=== PATIENT | female | born 1960 | race Caucasian/White ===

== ENCOUNTER 2018-05-30 15:44 | Observation (INO) ==
--- NOTE | 2018-05-30 16:21 | ED ---
HPI General Chief complaint: Respiratory Symptoms Stated complaint: trouble breathing, swelling Time Seen by Provider: 05/30/18 16:03 Source: patient and RN notes reviewed Mode of arrival: ambulatory Limitations: no limitations History of Present Illness HPI narrative: 58-year-old female presents to the emergency department for several complaints. The patient reports shortness of breath, chest heaviness that started 5 days ago. Patient denies any exacerbating or alleviating factors of her chest pain. No radiation. Patient does report history of DC when she was 43 years old. Patient has not taken aspirin. 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 She denies any recent stress testing or cardiac catheterization. She reports chronic leg edema. She reports history of hypertension, diabetes, anxiety, DC, asthma. She also reports history of colitis. She states she has been having worsening abdominal pain. She reports history of chronic pain, but states that has been worse over the past few weeks. She reports associated diarrhea and nausea, but no vomiting. 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 She denies any recent imaging. She denies any recent surgery or travel. No hemoptysis. Denies any history of DVT or PE. She is not on anticoagulants. Onset (ago): day(s) Location: chest Radiation: non-radiation Severity: moderate Severity scale (1-10): 8 Quality: other (heavy) Pain Consistency: constant Relieving factors: none Exacerbating factors: none Associated symptoms: Reports nausea/vomiting, shortness of breath and other ( abdominal pain/swelling); Denies confusion, fever/chills, headaches, syncope and weakness Related Data Home Medications Medication Instructions Recorded Confirmed hydroxyzine HCl 25 mg PO QAM 05/30/18 05/30/18 hydroxyzine HCl 50 mg PO QPM 05/30/18 05/30/18 metformin 1,000 mg PO QAM 05/30/18 05/30/18 metformin 500 mg PO QPM 05/30/18 05/30/18 metoprolol succinate [Toprol XL] 100 mg PO BID 05/30/18 05/30/18 Allergies Allergy/AdvReac Type Severity Reaction Status Date / Time doxycycline Allergy Intermediate Hives Verified 05/30/18 17:57 minocycline Allergy Intermediate Hives Verified 05/30/18 17:57 morphine Allergy Intermediate Hives Verified 05/30/18 17:57 tigecycline Allergy Intermediate Hives Verified 05/30/18 17:57 Review of Systems ROS: all other systems reviewed are negative [facility] Medical History Medical History Asthma (Acute) COPD (chronic obstructive pulmonary disease) (Acute) Colitis (Acute) Diabetes (Acute) Heart attack (Acute) Hypertension (Acute) Left knee dislocation (Acute) Surgical History Surgical History History of cholecystectomy (Acute) History of left knee surgery (Acute) Hx of tonsillectomy (Acute) Social History Social History Substance History: No History of Abuse Second Hand Smoke Exposure: Yes Smoking Status: Current every day smoker Tobacco Type: Cigarettes How Often Do You Have a Drink Containing Alcohol: Never Recent Travel in [facility] within the Last 8 Weeks: No Recent Out of Country Travel within the Last 8 Weeks: No Exam Narrative Exam Narrative: GENERAL: Well-nourished, well-developed female patient, afebrile SKIN: Focused skin assessment warm/dry. HEAD: Normocephalic. Atraumatic EYES: No scleral icterus. No injection or drainage. NECK: Supple, trachea midline. No JVD or lymphadenopathy. CARDIOVASCULAR: Regular rate and rhythm without murmurs, gallops, or rubs. Bilateral radial and pedal pulses are 2+ RESPIRATORY: Breath sounds equal bilaterally. No accessory muscle use. Lung sounds are clear to auscultation GASTROINTESTINAL: Abdomen soft and nondistended. She reports right sided tenderness to palpation MUSCULOSKELETAL: No cyanosis. Bilateral 2+ lower BACK: Nontender without obvious deformity. Bilateral CVA tenderness. Course Initial Documented Vital Signs Temperature 97.9 F 05/30/18 15:52 Pulse Rate 88 05/30/18 15:52 Respiratory Rate 16 05/30/18 15:52 Blood Pressure 149/72 H 05/30/18 15:52 Pulse Oximetry 93 L 05/30/18 15:52 Last Documented Vital Signs Temperature 98.2 F 05/30/18 21:31 Pulse Rate 82 05/30/18 21:31 Respiratory Rate 17 05/30/18 21:31 Blood Pressure 141/65 H 05/30/18 21:31 Pulse Oximetry 94 L 05/30/18 21:31 Medical Decision Making TANIA Attestation TANIA supervised visit: Yes Attestation: I, Dr. Frederick, have reviewed the advance practice practitioner's documentation and am in agreement, met with the patient face to face, made the diagnosis, and the medical decision making was done by me. *My assessment and Findings: Patient seen and evaluated with PA, please see PA note for further details. Patient coming in with several complaints, abdominal discomfort, chest pains, and she is tender to palpation of the upper abdomen. She has been having diarrhea as well. Abdominal pain workup was initiated. EKG and chest pain workup evaluated as well. Disposition based on workup. MDM Narrative Medical decision making narrative: 58-year-old female presents to the emergency department for several complaints. She complains of chest heaviness, shortness of breath, abdominal pain. EKG shows sinus rhythm, heart rate 81, no acute ST changes. IV access obtained. CBC, CMP, lipase, magnesium, CK, troponin, BNP, PTT, PT/INR, d-dimer, chest x-ray are ordered and pending. Patient is given aspirin 162 mg p.o. CBC shows no acute abnormality. CMP shows elevated hyperglycemia 277, no acute abnormality. Lipase is 78. Magnesium is 1.8. CK is 134. Troponin is less than 0.02. BNP is 12. PTT is 18.7. PT/INR is 10.0/1.0. D-dimer is 2.43. Chest x-ray shows no acute cardiopulmonary disease. CT abdomen/pelvis and CT pulmonary angiogram are ordered and pending. CT abdomen/pelvis shows No acute CT abnormality in the abdomen or pelvis; Mild colonic diverticulosis without evidence for diverticulitis; No definitive evidence for CT evidence for colitis; Hepatomegaly with decreased hepatic attenuation consistent with medical liver disease versus hepatic steatosis; Minimal groundglass opacities at the right lung base, likely atelectasis; Nonspecific mar mesentery and subcentimeter mesenteric nodes in the left upper quadrant. Differential considerations include mesenteric panniculitis amongst other etiologies. Chest CTA is negative for pulmonary embolism. Patient is instructed to follow up with GI. She will be admitted to the [facility] for further evaluation of chest pain. Medical Screen Exam Complete: Yes Emergency Medical Condition: Yes Lab Data Result diagrams: 05/30/18 16:25 05/30/18 16:25 Lab Results 05/30/18 05/30/18 05/30/18 Range/Units 16:25 16:25 16:25 WBC 6.3 (4.0-11.0) th/mm3 RBC 4.48 (4.00-5.30) mil/mm3 Hgb 14.1 (11.6-15.3) gm/dL Hct 40.7 (35.0-46.0) % MCV 90.9 (80.0-100.0) fL MCH 31.4 (27.0-34.0) pg MCHC 34.5 (32.0-36.0) % RDW 13.1 (11.6-17.2) % Plt Count 186 (150-450) th/mm3 MPV 8.0 (7.0-11.0) fL Neut % (Auto) 57.7 (16.0-70.0) % Lymph % (Auto) 29.2 (9.0-44.0) % Cecil % (Auto) 6.1 (0.0-8.0) % Eos % (Auto) 6.2 H (0.0-4.0) % Baso % (Auto) 0.8 (0.0-2.0) % Neut # (Auto) 3.6 (1.8-7.7) th/mm3 Lymph # (Auto) 1.8 (1.0-4.8) th/mm3 Cecil # (Auto) 0.4 (0.0-0.9) th/mm3 Eos # (Auto) 0.4 (0.0-0.4) th/mm3 Baso # (Auto) 0.1 (0.0-0.2) th/mm3 WBC Differential . Differential Comment Auto diff final PT 10.0 (9.8-11.6) sec INR 1.0 Ratio APTT 18.7 L (23.4-31.7) sec D-Dimer Quant (PE/DVT) 2.43 H (0.00-0.50) mg/L FEU Sodium 136 (136-145) meq/L Potassium 4.9 (3.5-5.1) meq/L Chloride 101 (98-107) meq/L Carbon Dioxide 26.3 (21.0-32.0) meq/L Anion Gap 9 (5-15) meq/L BUN 7 (7-18) mg/dL Creatinine 0.79 (0.50-1.00) mg/dL Estimated GFR 74 L (>89) mL/min POC Glucose (68-110) mg/dl Random Glucose 277 H (74-106) mg/dL Calcium 8.8 (8.5-10.1) mg/dL Magnesium 1.8 (1.5-2.5) mg/dL Total Bilirubin 0.6 (0.2-1.0) mg/dL AST 81 H (15-37) U/L ALT 43 (10-53) U/L Alkaline Phosphatase 167 H (45-117) U/L Total Creatine Kinase 134 (26-192) U/L CK-MB (CK-2) Less than 1.0 (0.5-3.6) ng/mL Troponin I Less than 0.02 L (0.02-0.05) ng/mL B-Natriuretic Peptide (0-100) pg/mL Total Protein 7.3 (6.4-8.2) g/dL Albumin 2.7 L (3.4-5.0) g/dL Lipase 78 (73-393) U/L 05/30/18 05/30/18 05/30/18 Range/Units 16:25 20:15 20:27 WBC (4.0-11.0) th/mm3 RBC (4.00-5.30) mil/mm3 Hgb (11.6-15.3) gm/dL Hct (35.0-46.0) % MCV (80.0-100.0) fL MCH (27.0-34.0) pg MCHC (32.0-36.0) % RDW (11.6-17.2) % Plt Count (150-450) th/mm3 MPV (7.0-11.0) fL Neut % (Auto) (16.0-70.0) % Lymph % (Auto) (9.0-44.0) % Cecil % (Auto) (0.0-8.0) % Eos % (Auto) (0.0-4.0) % Baso % (Auto) (0.0-2.0) % Neut # (Auto) (1.8-7.7) th/mm3 Lymph # (Auto) (1.0-4.8) th/mm3 Cecil # (Auto) (0.0-0.9) th/mm3 Eos # (Auto) (0.0-0.4) th/mm3 Baso # (Auto) (0.0-0.2) th/mm3 WBC Differential Differential Comment PT (9.8-11.6) sec INR Ratio APTT (23.4-31.7) sec D-Dimer Quant (PE/DVT) (0.00-0.50) mg/L FEU Sodium (136-145) meq/L Potassium (3.5-5.1) meq/L Chloride (98-107) meq/L Carbon Dioxide (21.0-32.0) meq/L Anion Gap (5-15) meq/L BUN (7-18) mg/dL Creatinine (0.50-1.00) mg/dL Estimated GFR (>89) mL/min POC Glucose 149 H (68-110) mg/dl Random Glucose (74-106) mg/dL Calcium (8.5-10.1) mg/dL Magnesium (1.5-2.5) mg/dL Total Bilirubin (0.2-1.0) mg/dL AST (15-37) U/L ALT (10-53) U/L Alkaline Phosphatase (45-117) U/L Total Creatine Kinase 32 (26-192) U/L CK-MB (CK-2) (0.5-3.6) ng/mL Troponin I Less than 0.02 L (0.02-0.05) ng/mL B-Natriuretic Peptide 12 (0-100) pg/mL Total Protein (6.4-8.2) g/dL Albumin (3.4-5.0) g/dL Lipase (73-393) U/L Imaging Data Radiologist's impression: Chest X-Ray 05/30/18 16:14 CONCLUSION: No acute cardiopulmonary disease. Abdomen/Pelvis CT 05/30/18 17:43 CONCLUSION: 1. No acute CT abnormality in the abdomen or pelvis. 2. Mild colonic diverticulosis without evidence for diverticulitis. 3. No definitive evidence for CT evidence for colitis. 4. Hepatomegaly with decreased hepatic attenuation consistent with medical liver disease versus hepatic steatosis. 5. Minimal groundglass opacities at the right lung base, likely atelectasis. 6. Nonspecific mar mesentery and subcentimeter mesenteric nodes in the left upper quadrant. Differential considerations include mesenteric panniculitis amongst other etiologies. Chest CTA 05/30/18 17:43 CONCLUSION: 1. Motion limited examination with poor visualization of the subsegmental branches of the lower lobes. 2. Otherwise, no CT evidence for pulmonary artery embolism. 3. No significant pleural or parenchymal abnormalities. Discharge Plan Discharge Disposition Patient Disposition: 30 Still Patient Discharge Details Diagnosis: Chest pain Physicians Team ED Provider: Jase Frederick ED Midlevel Provider: Kya Reich Primary Care Provider: Primary Care Mikayla Brock Attending Provider: Talisha Dorado Discharge Interventions Interventions: ED Discharge Assessment Last Done: 05/30/18 21:31 Vital Signs Last Done: 05/30/18 15:56 Status ED Status: Left Department Discharge Information Discharge Date/Time: 05/30/18 21:32
[2018-05-30 17:15] LABS: Baso # (Auto) 0.1 th/mm3 (0.0-0.2); Baso % (Auto) 0.8 % (0.0-2.0); Eos # (Auto) 0.4 th/mm3 (0.0-0.4); Eos % (Auto) 6.2 % (0.0-4.0); Hematocrit 40.7 % (35.0-46.0); Hemoglobin 14.1 gm/dL (11.6-15.3); Lymph # (Auto) 1.8 th/mm3 (1.0-4.8); Lymph % (Auto) 29.2 % (9.0-44.0); Mean Corpuscular HGB Conc 34.5 % (32.0-36.0); Mean Corpuscular Hemoglobin 31.4 pg (27.0-34.0); Mean Corpuscular Volume 90.9 fL (80.0-100.0); Mono # (Auto) 0.4 th/mm3 (0.0-0.9); Mono % (Auto) 6.1 % (0.0-8.0); Neut # (Auto) 3.6 th/mm3 (1.8-7.7); Neut % (Auto) 57.7 % (16.0-70.0); Platelet Count 186 th/mm3 (150-450); Red Blood Count 4.48 mil/mm3 (4.00-5.30); Red Cell Distribution Width 13.1 % (11.6-17.2); White Blood Count 6.3 th/mm3 (4.0-11.0)
--- NOTE | 2018-05-30 17:34 | XR ---
EXAM DATE: 05/30/2018 5:26 PM EST AGE/SEX: 58 years / Female INDICATIONS: Chest pain and shortness of breath. CLINICAL DATA: This is the patient's initial encounter. Patient reports that signs and symptoms have been present for 3 days and indicates a pain score of 8/10. MEDICAL/SURGICAL HISTORY: Chronic obstructive pulmonary disease. Asthma. Myocardial infarctio n. None. COMPARISON: None. FINDINGS: A single AP view of the chest demonstrates the lungs to be symmetrically aerated without evidence of mass, infiltrate or effusion. The cardiomediastinal contours are unremarkable. Osseous structures a re intact. CONCLUSION: No acute cardiopulmonary disease. Electronically signed by: Khurram Verduzco MD 05/30/2018 5:33 PM EST
[2018-05-30 17:35] LABS: Activated Partial Thrombo Time 18.7 sec (23.4-31.7)
[2018-05-30 17:36] LABS: D-Dimer 2.43 mg/L FEU (0.00-0.50)
[2018-05-30] MEDS ORDERED: Sodium Chlor 0.9% Inj 500 ML IV.SIG ONE (17:44)
[2018-05-30 17:45] LABS: Alanine Aminotransferase 43 U/L (10-53); Albumin 2.7 g/dL (3.4-5.0); Alkaline Phosphatase 167 U/L (45-117); Anion Gap 9 meq/L (5-15); Aspartate Aminotransferase 81 U/L (15-37); Blood Urea Nitrogen 7 mg/dL (7-18); Calcium 8.8 mg/dL (8.5-10.1); Carbon Dioxide 26.3 meq/L (21.0-32.0); Chloride 101 meq/L (98-107); Creatine Kinase 134 U/L (26-192); Glomerular Filtration Rate 74 mL/min (>89); Glucose,Random 277 mg/dL (74-106); Lipase 78 U/L (73-393); Magnesium 1.8 mg/dL (1.5-2.5); Potassium 4.9 meq/L (3.5-5.1); Sodium 136 meq/L (136-145); Total Protein 7.3 g/dL (6.4-8.2)
--- NOTE | 2018-05-30 19:06 | CT ---
EXAM DATE: 05/30/2018 7:01 PM EST AGE/SEX: 58 years / Female INDICATIONS: Dyspnea; rule out pulmonary embolus. CLINICAL DATA: This is the patient's initial encounter. Patient reports that signs and symptoms have been present for 1 day and indicates a pain score of 6/10. MEDICAL/SURGICAL HISTORY: Asthma. Chronic obstructive pulmonary disease. Diabetes. Colitis Chol ecystectomy. knee surgery RADIATION DOSE: 18.27 CTDI (mGy) COMPARISON: No prior exams available for comparison. TECHNIQUE: Volumetric scanning was performed using a multi-row detector CT scanner during bolus infu arya of 74 ml Omnipaque 350 (iohexol) nonionic water-soluble contrast as a cumulative dose for multi ple exams. The data was post processed with a variety of visualization algorithms including full volu me maximum intensity projection and sliding thin slab reformation. Using automated exposure control and adjustment of the mA and/or kV according to patient size, radiation dose was kept as low as reaso nably achievable to obtain optimal diagnostic quality images. DICOM format image data is available e lectronically for review and comparison. FINDINGS: Pulmonary Arteries: The pulmonary arteries are visualized through the proximal segmental level. More distal subsegmental branches particularly in the lower lobes are not well demonstrated. This is part ially due to motion artifact. No focal filling defect in the visualized branches. Lung: No focal parenchymal abnormalities. Pleura: No effusion, significant pleural thickening or pneumothorax. Mediastinum: Heart is unremarkable without pericardial effusion.No evidence of mediastinal or hilar adenopathy. Osseous Structures: No abnormal focal lytic or blastic bony lesions. Other: Visulaized upper abdomen is unremarkable. CONCLUSION: 1. Motion limited examination with poor visualization of the subsegmental branches of the lower lobe s. 2. Otherwise, no CT evidence for pulmonary artery embolism. 3. No significant pleural or parenchymal abnormalities. Electronically signed by: Maco Kelley MD 05/30/2018 7:05 PM EST
--- NOTE | 2018-05-30 19:20 | CT ---
EXAM DATE: 05/30/2018 7:11 PM EST AGE/SEX: 58 years / Female INDICATIONS: Abdominal pain; history of colitis. CLINICAL DATA: This is the patient's initial encounter. Patient reports that signs and symptoms have been present for 1 day and indicates a pain score of 6/10. MEDICAL/SURGICAL HISTORY: Diabetes. Asthma. Chronic obstructive pulmonary disease. Colitis Cholecystectomy. knee surgery ORAL CONTRAST: No oral contrast ingested. RADIATION DOSE: 13.99 CTDI (mGy) COMPARISON: No prior exams available for comparison. TECHNIQUE: Multiple contiguous axial images were obtained through the abdomen and pelvis following b olus infusion of 74 ml Omnipaque 350 (iohexol) nonionic water-soluble contrast as a cumulative dose for multiple exams. No oral contrast ingested. Using automated exposure control and adjustment of t he mA and/or kV according to patient size, radiation dose was kept as low as reasonably achievable to obtain optimal diagnostic quality images. DICOM format image data is available electronically for r eview and comparison. FINDINGS: LOWER LUNGS: Minimal groundglass opacities at the right lung base. LIVER: Diffusely decreased hepatic density with hepatomegaly. No volume loss or intrahepatic ductal dilatation. SPLEEN: Homogeneous density without enlargement. PANCREAS: Unremarkable without mass or calcification. KIDNEYS: Kidneys demonstrate symmetrical enhancement and are symmetrical in size without evidence fo r radiopaque renal calculi or hydronephrosis. ADRENAL GLANDS: Unremarkable. AORTA: Kathie-aneurysmal. BOWEL/MESENTERY: Mild sigmoid diverticulosis without significant inflammatory change to suggest dive rticulitis. Bowel loops are otherwise normal in caliber without significant colonic wall thickening o r inflammatory change. Mar mesentery with small mesenteric nodes in the left upper quadrant. No jelani e fluid or drainable fluid collections. No free air. ABDOMINAL WALL: Intact. RETROPERITONEUM: No evidence of adenopathy in the retrocrural, para-aortic, or deep pelvic regions. BLADDER: Contours are smooth. REPRODUCTIVE: No abnormal masses or calcifications seen. BONY STRUCTURES: Mild degenerative changes most prominently at L5-S1 and T12-L1. CONCLUSION: 1. No acute CT abnormality in the abdomen or pelvis. 2. Mild colonic diverticulosis without evidence for diverticulitis. 3. No definitive evidence for CT evidence for colitis. 4. Hepatomegaly with decreased hepatic attenuation consistent with medical liver disease versus hepa tic steatosis. 5. Minimal groundglass opacities at the right lung base, likely atelectasis. 6. Nonspecific mar mesentery and subcentimeter mesenteric nodes in the left upper quadrant. Differ ential considerations include mesenteric panniculitis amongst other etiologies. Electronically signed by: Maco Kelley MD 05/30/2018 7:18 PM EST
[2018-05-30] MEDS ORDERED: Metoprolol Tartrate 100 MG Tablet PO ONE (20:12)
[2018-05-30] MEDS ORDERED: Acetaminophen 500 MG Tablet PO PRN (20:16)
[2018-05-30 21:07] LABS: Creatine Kinase 32 U/L (26-192)
[2018-05-31 01:10] LABS: Creatine Kinase 38 U/L (26-192)
[2018-05-31 08:55] VITALS: RESP 14; TEMP 98.7; O2SAT 94
--- NOTE | 2018-05-31 10:45 | P.PNCA ---
Subjective Interval history: 58-year-old woman presented by physician branch controller and then seen and examined personally. After full discussion and decision making made by myself. This lady has an extensive medical history with a reported heart attack at age 43 in [place] although there is no documentation to support this. She has not been seen by paradi tender or evaluated since that time. She also has a history of severe hypertension, diabetes, bipolar disorder with anxiety and depression, asthma/COPD, and colitis. She is uninsured and has not been able to follow up with any specialist in this area simply receives her care through this area health care. About 5 days ago she developed mid chest discomfort which has been constant although it is increased with deep breathing. She relates this is an 8 out of 10 even has a she is examined although she seems to be fairly comfortable. She describes as a heaviness with no radiation and no precipitating or relieving factors. The focus of much of her current complaint is abdominal pain associated with nausea and diarrhea. She has been told in the past that she has spastic colon. There were no concerns at the present time of the abdominal pain and shortness of breath. She has a smoking history since the age of 14 but stopped about 2 years ago and is aware that she has COPD. She has already been evaluated with an abdominal and pelvic CT scan which shows some possible hepatic stasis and panniculitis but no other acute disease she has also had a CTA of the chest which is negative other than her underlying lung disease. Medications and Allergies Active Medications: Active Medications Acetaminophen (Tylenol) 500 mg PO Q4H PRN PRN Reason: HEADACHE Nitroglycerin (Nitrostat Sl) 0.4 mg SL Q5M PRN PRN Reason: CHEST PAIN Sodium Chloride (Ns Flush) 2 ml IV.FLUSH UNSCH PRN PRN Reason: FLUSH AFTER USING IV ACCESS Last Admin: 05/30/18 17:59 Dose: 2 ml Sodium Chloride (Ns Flush) 2 ml IV.FLUSH BID LELA Last Admin: 05/31/18 08:59 Dose: 2 ml Sodium Chloride (Ns Flush) 2 ml IV.FLUSH PRN PRN PRN Reason: FLUSH AFTER USING IV ACCESS Allergies Allergy/AdvReac Type Severity Reaction Status Date / Time doxycycline Allergy Intermediate Hives Verified 05/30/18 17:57 minocycline Allergy Intermediate Hives Verified 05/30/18 17:57 morphine Allergy Intermediate Hives Verified 11/23/18 17:57 tigecycline Allergy Intermediate Hives Verified 05/30/18 17:57 Home Medications Medication Instructions Recorded Confirmed Type hydroxyzine HCl 25 mg PO QAM 05/30/18 05/30/18 History hydroxyzine HCl 50 mg PO QPM 05/30/18 05/30/18 History metformin 1,000 mg PO QAM 05/30/18 05/30/18 History metformin 500 mg PO QPM 05/30/18 05/30/18 History metoprolol succinate [Toprol XL] 100 mg PO BID 05/30/18 05/30/18 History Physical Exam Vital signs: Vital Signs 05/30/18 15:52 05/30/18 15:56 05/30/18 16:28 Temperature 97.9 F 98.2 F Pulse Rate 88 81 82 Respiratory Rate 16 20 Blood Pressure 149/72 H 161/66 H Pulse Oximetry 93 L 96 96 05/30/18 16:29 05/30/18 16:30 05/30/18 17:20 Temperature Pulse Rate 83 Respiratory Rate 17 18 Blood Pressure 135/65 Pulse Oximetry 96 96 05/30/18 18:01 05/30/18 19:20 05/30/18 20:35 Temperature 97.8 F Pulse Rate 88 74 83 Respiratory Rate 20 19 18 Blood Pressure 161/71 H 160/96 H 150/70 H Pulse Oximetry 97 96 96 05/30/18 21:31 05/31/18 00:02 05/31/18 04:54 Temperature 98.2 F 98.0 F 98.0 F Pulse Rate 82 83 80 Respiratory Rate 17 16 16 Blood Pressure 141/65 H 108/59 L 136/71 Pulse Oximetry 94 L 93 L 92 L 05/31/18 08:53 Temperature 98.7 F Pulse Rate 77 Respiratory Rate 14 Blood Pressure 135/63 Pulse Oximetry 94 L Intake & Output 05/30/18 05/31/18 05/31/18 18:59 06:59 18:59 Intake Total 500 / 500 Balance 500 / 500 Weight 92.533 kg 92.533 kg Intake: IV 500 / 500 NS Inj 500 ML @ Wide Open IV. 500 / 500 SIG BOLUS ONE Rx#:[id number] Other: Date of Last Bowel Movement 05/30/18 Weight On Admission 92.53 kg Narrative: An obese woman resting comfortably flat in bed Eyes PERRLA EOMI sclera clear Neck supple no JVD masses nodes or bruits Cardiovascular PMI is not displaced there is a regular sinus rhythm with no gallop rub or murmur Chest reveals diminished breath sounds but no rales wheezes or rhonchi. The lower chest in the sternal and costochondral areas are exquisitely painful to palpation and represent the probable cause of her current chest pain. The abdomen is obese again exquisitely tender particularly over the left lower quadrants however there is no guarding or rebound and no masses can be palpated Extremities trace of pitting edema bilaterally Results 05/30/18 16:25 05/30/18 16:25 Cardiac Enzymes 05/30/18 05/30/18 05/30/18 Range/Units 16:25 16:25 20:15 AST 81 H (15-37) U/L CK-MB (CK-2) Less than 1.0 (0.5-3.6) ng/mL Troponin I Less than 0.02 L Less than 0.02 L (0.02-0.05) ng/mL B-Natriuretic Peptide 12 (0-100) pg/mL 05/30/18 Range/Units 23:59 AST (15-37) U/L CK-MB (CK-2) (0.5-3.6) ng/mL Troponin I Less than 0.02 L (0.02-0.05) ng/mL B-Natriuretic Peptide (0-100) pg/mL Coagulation 05/30/18 05/30/18 Range/Units 16:25 16:25 PT 10.0 (9.8-11.6) sec APTT 18.7 L (23.4-31.7) sec B-Natriuretic Peptide 12 (0-100) pg/mL CBC 05/30/18 Range/Units 16:25 WBC 6.3 (4.0-11.0) th/mm3 RBC 4.48 (4.00-5.30) mil/mm3 Hgb 14.1 (11.6-15.3) gm/dL Hct 40.7 (35.0-46.0) % Plt Count 186 (150-450) th/mm3 Neut # (Auto) 3.6 (1.8-7.7) th/mm3 Lymph # (Auto) 1.8 (1.0-4.8) th/mm3 [place] # (Auto) 0.4 (0.0-0.9) th/mm3 Eos # (Auto) 0.4 (0.0-0.4) th/mm3 Baso # (Auto) 0.1 (0.0-0.2) th/mm3 Comprehensive Metabolic Panel 05/30/18 Range/Units 16:25 Sodium 136 (136-145) meq/L Potassium 4.9 (3.5-5.1) meq/L Chloride 101 (98-107) meq/L Carbon Dioxide 26.3 (21.0-32.0) meq/L BUN 7 (7-18) mg/dL Creatinine 0.79 (0.50-1.00) mg/dL Calcium 8.8 (8.5-10.1) mg/dL AST 81 H (15-37) U/L ALT 43 (10-53) U/L Alkaline Phosphatase 167 H (45-117) U/L Total Protein 7.3 (6.4-8.2) g/dL Albumin 2.7 L (3.4-5.0) g/dL Intake and Output 05/30/18 05/31/18 05/31/18 22:59 06:59 14:59 Intake Total 500 / 500 Balance 500 / 500 Intake: IV 500 / 500 NS Inj 500 ML @ Wide Open IV. 500 / 500 SIG BOLUS ONE Rx#:[id number] Other: Date of Last Bowel Movement 05/30/18 Weight 92.533 kg Weight On Admission 92.53 kg - Imaging and Cardiology Imaging: Impressions Chest X-Ray 05/30/18 16:14 CONCLUSION: No acute cardiopulmonary disease. Abdomen/Pelvis CT 05/30/18 17:43 CONCLUSION: 1. No acute CT abnormality in the abdomen or pelvis. 2. Mild colonic diverticulosis without evidence for diverticulitis. 3. No definitive evidence for CT evidence for colitis. 4. Hepatomegaly with decreased hepatic attenuation consistent with medical liver disease versus hepatic steatosis. 5. Minimal groundglass opacities at the right lung base, likely atelectasis. 6. Nonspecific mar mesentery and subcentimeter mesenteric nodes in the left upper quadrant. Differential considerations include mesenteric panniculitis amongst other etiologies. Chest CTA 05/30/18 17:43 CONCLUSION: 1. Motion limited examination with poor visualization of the subsegmental branches of the lower lobes. 2. Otherwise, no CT evidence for pulmonary artery embolism. 3. No significant pleural or parenchymal abnormalities. Assessment and Plan - Plan Patient was given reassurance that her chest CT scan and abdominal CT scan showed no acute emergent process. The possible panniculitis in her abdomen is of some concern but needs outpatient follow-up with a jewelry enameler. Her shortness of breath is almost certainly related to her underlying pulmonary disease. Her chest pain is musculoskeletal in origin and consistent with costochondritis. However in view of her history and the fact that she has not been followed for some time a nuclear stress test will be obtained prior to discharge.
--- NOTE | 2018-05-31 11:08 | ECG ---
Date Performed: 05/31/2018 Time Performed: 01:02:09 PTAGE: 58 years EKG: Sinus rhythm NORMAL ECG No significant change PREVIOUS TRACING : 05/30/2018 23.59 DOCTOR: Aubrey Remy Interpretating Date/Time 05/31/2018 11:08:47
--- NOTE | 2018-05-31 11:11 | ECG ---
Date Performed: 05/30/2018 Time Performed: 23:59:50 PTAGE: 58 years EKG: Sinus rhythm WITH MARKED SINUS ARRHYTHMIA Nonspecific ST-T changes with anterior wall ABNORMAL ECG Clinical corre lation recommended PREVIOUS TRACING : 05/30/2018 20.43 DOCTOR: Aubrey Remy Interpretating Date/Time 05/31/2018 11:09:54
--- NOTE | 2018-05-31 11:12 | ECG ---
Date Performed: 05/30/2018 Time Performed: 20:43:05 PTAGE: 58 years EKG: Sinus rhythm BORDERLINE LEFT AXIS DEVIATION NONSPECIFIC ST & T-WAVE ABNORMALITY BORDERLINE ECG No significant tamar nge PREVIOUS TRACING : 05/30/2018 16.14 DOCTOR: Aubrey Remy Interpretating Date/Time 05/31/2018 11:10:58
--- NOTE | 2018-05-31 11:14 | ECG ---
Date Performed: 05/30/2018 Time Performed: 16:14:34 PTAGE: 58 years EKG: Sinus rhythm BORDERLINE LEFT AXIS DEVIATION NONSPECIFIC T-WAVE ABNORMALITY BORDERLINE ECG NO PREVIOUS TRACING DOCTOR: Aubrey Remy Interpretating Date/Time 05/31/2018 11:12:30
[2018-05-31] MEDS ORDERED: Dextrose 50% in Water 50 ML Vial IV.PUSH PRN (11:28)
[2018-05-31] MEDS ORDERED: Insulin NovoLIN Regular Correctional Sugar Inj SQ SCH (12:00)
[2018-05-31] MEDS ORDERED: Metoprolol Tartrate 50 MG Tablet PO ONE (12:03)
[2018-05-31 12:23] VITALS: BP 128/64; PULSE 80
--- NOTE | 2018-05-31 12:32 | P.HPCA ---
History of Present Illness Primary Care Physician: No Primary Care Physician Chief Complaint: Chest pain History of Present Illness: This is a 58-year-old female with history of hypertension, diabetes, asthma, anxiety, and states she was told that she had an WV at age 43, and colitis that presents to ED with complaint of 6 days of constant chest discomfort that primarily is on the left side. States it feels as if an elephant is sitting on her chest. She is also been short of breath with activities for the last 2 weeks. Denies nausea or diaphoresis. Cannot recall recent cardiac workup. States she has colitis and chronically has either diarrhea or constipation. Denies blood in stool. Denies fevers or chills. States she had an WV at age 43 but no heart catheterization or stress test was done at that time. She has had stress test since but it has been more than 7 or 8 years ago. She is not followed by a outcomes specialist. She goes to the [facility] for her medical care. Stated history of WV at age 43. History of hypertension, asthma, colitis, diabetes, anxiety. Denies hyperlipidemia. Denies any knowledge of coronary artery disease. States that her father at age 43 of an WV. She quit smoking 2 years ago but prior to that she smoked between one half to three-quarter pack of series daily for 45 years. Denies alcohol or illicit drug use. - Diagnosis (1) Chest pain (2) Diabetes (3) Anxiety (4) Colitis (5) Asthma Review of Systems General: Patient denies fevers, chills, and recent travel. HEENT: Patient denies headache, sore throat, difficulty swallowing. Cardiovascular: Has the chest discomfort as mentioned above. Denies sensation of heart beating rapidly or irregularly. No syncope. Respiratory: She has been short of breath with her chest discomfort but also has been short of breath with activities for 2 weeks. Denies inspirational chest discomfort. Denies coughing wheezing or hemoptysis. GI: Chronically has other diarrhea or constipation. Patient denies nausea, vomiting, abdominal pain, bloody stools. Musculoskeletal: Patient denies joint pain or edema. Denies calf pain or edema. Neurovascular: Patient denies numbness, tingling, weakness in extremities. Denies headache. Endocrine: Denies polyuria and polydipsia. Hematologic: Denies easy bruising. Skin: Denies rash or itching. PMFSH - History History Provided By: Patient - Medical History Medical History: Medical History (Last Updated 05/30/18 @ 16:28 by Rosibel Solitario) Asthma COPD (chronic obstructive pulmonary disease) Colitis Diabetes Heart attack Hypertension Left knee dislocation - Surgical History Surgical History: Surgical History (Last Updated 05/30/18 @ 16:28 by Rosibel Solitario) History of cholecystectomy History of left knee surgery Hx of tonsillectomy - Tobacco History Second Hand Smoke Exposure: Yes Tobacco Use In Past 30 Days: Yes Smoking Status: Current every day smoker Tobacco Type: Cigarettes - Alcohol History How Often Do You Have a Drink Containing Alcohol: Never - Substance Use History Substance History: No History of Abuse - Travel History Recent Travel in the [place] Within the Last 8 Weeks: No Recent Travel Out of the Country Within the Last 8 Weeks: No - Immunization History Tetanus Immunization: Unsure Medications and Allergies Active Medications: Active Medications Acetaminophen (Tylenol) 500 mg PO Q4H PRN PRN Reason: HEADACHE Dextrose (D50w Vial) 50 ml IV.PUSH UNSCH PRN PRN Reason: PER HYPOGLYCEMIA PROTOCOL Glucagon (Glucagon Inj) 1 mg OTHER PRN PRN PRN Reason: for Hypoglycemia Protocol Hydroxyzine HCl (Atarax) 25 mg PO DAILY [facility] Last Admin: 05/31/18 11:39 Dose: 25 mg Hydroxyzine HCl (Atarax) 50 mg PO QPM [facility] Insulin Human Regular (Novolin R Correctional Sugar Inj) 0 units SQ ACHS [facility]; Protocol Metoprolol Tartrate (Lopressor) 100 mg PO BID [facility] Nitroglycerin (Nitrostat Sl) 0.4 mg SL Q5M PRN PRN Reason: CHEST PAIN Sodium Chloride (Ns Flush) 2 ml IV.FLUSH UNSCH PRN PRN Reason: FLUSH AFTER USING IV ACCESS Last Admin: 05/30/18 17:59 Dose: 2 ml Sodium Chloride (Ns Flush) 2 ml IV.FLUSH BID [facility] Last Admin: 05/31/18 08:59 Dose: 2 ml Sodium Chloride (Ns Flush) 2 ml IV.FLUSH PRN PRN PRN Reason: FLUSH AFTER USING IV ACCESS Allergies Allergy/AdvReac Type Severity Reaction Status Date / Time doxycycline Allergy Intermediate Hives Verified 05/30/18 17:57 minocycline Allergy Intermediate Hives Verified 05/30/18 17:57 morphine Allergy Intermediate Hives Verified 05/30/18 17:57 tigecycline Allergy Intermediate Hives Verified 05/30/18 17:57 Home Medications Medication Instructions Recorded Confirmed Type hydroxyzine HCl 25 mg PO QAM 05/30/18 05/30/18 History hydroxyzine HCl 50 mg PO QPM 05/30/18 05/30/18 History metformin 1,000 mg PO QAM 05/30/18 05/30/18 History metformin 500 mg PO QPM 05/30/18 05/30/18 History metoprolol tartrate 100 mg PO BID 05/31/18 05/31/18 History Exam Vital signs: Vital Signs 05/30/18 15:52 05/30/18 15:56 05/30/18 16:28 Temperature 97.9 F 98.2 F Pulse Rate 88 81 82 Respiratory Rate 16 20 Blood Pressure 149/72 H 161/66 H Pulse Oximetry 93 L 96 96 05/30/18 16:29 05/30/18 16:30 05/30/18 17:20 Temperature Pulse Rate 83 Respiratory Rate 17 18 Blood Pressure 135/65 Pulse Oximetry 96 96 05/30/18 18:01 05/30/18 19:20 05/30/18 20:35 Temperature 97.8 F Pulse Rate 88 74 83 Respiratory Rate 20 19 18 Blood Pressure 161/71 H 160/96 H 150/70 H Pulse Oximetry 97 96 96 05/30/18 21:31 05/31/18 00:02 05/31/18 04:54 Temperature 98.2 F 98.0 F 98.0 F Pulse Rate 82 83 80 Respiratory Rate 17 16 16 Blood Pressure 141/65 H 108/59 L 136/71 Pulse Oximetry 94 L 93 L 92 L 05/31/18 08:53 05/31/18 12:00 Temperature 98.7 F Pulse Rate 77 80 Respiratory Rate 14 Blood Pressure 135/63 128/64 Pulse Oximetry 94 L Intake & Output 05/30/18 05/31/18 05/31/18 18:59 06:59 18:59 Intake Total 500 / 500 Balance 500 / 500 Weight 92.533 kg 92.533 kg Intake: IV 500 / 500 NS Inj 500 ML @ Wide Open IV. 500 / 500 SIG BOLUS ONE Rx#:[id number] Other: Date of Last Bowel Movement 05/30/18 Weight On Admission 92.53 kg Narrative: GENERAL: This is a well-nourished, well-developed patient, in no apparent distress. Patient speaks in clear complete sentences. Patient is pleasant. HEENT: Head is atraumatic and normocephalic. Neck is supple without lymphadenopathy and trachea is midline. No JVD or carotid bruits. CARDIOVASCULAR: Regular rate and rhythm without murmurs, gallops, or rubs. RESPIRATORY: Clear to auscultation. Breath sounds equal bilaterally. No wheezes , rales, or rhonchi. Chest wall is very tender. Even very lightly pressing on her chest wall worsens the discomfort that brought her to the ED.. No use of accessory muscles. GASTROINTESTINAL: Abdomen is nontender, nondistended. Abdomen soft. No obvious pulsatile mass or bruit. No CVA tenderness. Strong femoral pulses bilaterally. Normal bowel sounds in all quadrants. MUSCULOSKELETAL: Patient is moving upper and lower extremities freely. No calf tenderness or edema, no Homans sign. Strong pulses in upper and lower extremities. NEUROLOGICAL: Patient is alert and oriented. Cranial nerves 2-12 are grossly intact. No focal deficits and speech is clear. SKIN: No rash and turgor is normal. Results 05/30/18 16:25 05/30/18 16:25 Cardiac Enzymes 05/30/18 05/30/18 05/30/18 Range/Units 16:25 16:25 20:15 AST 81 H (15-37) U/L CK-MB (CK-2) Less than 1.0 (0.5-3.6) ng/mL Troponin I Less than 0.02 L Less than 0.02 L (0.02-0.05) ng/mL B-Natriuretic Peptide 12 (0-100) pg/mL 05/30/18 Range/Units 23:59 AST (15-37) U/L CK-MB (CK-2) (0.5-3.6) ng/mL Troponin I Less than 0.02 L (0.02-0.05) ng/mL B-Natriuretic Peptide (0-100) pg/mL Coagulation 05/30/18 05/30/18 Range/Units 16:25 16:25 PT 10.0 (9.8-11.6) sec APTT 18.7 L (23.4-31.7) sec B-Natriuretic Peptide 12 (0-100) pg/mL CBC 05/30/18 Range/Units 16:25 WBC 6.3 (4.0-11.0) th/mm3 RBC 4.48 (4.00-5.30) mil/mm3 Hgb 14.1 (11.6-15.3) gm/dL Hct 40.7 (35.0-46.0) % Plt Count 186 (150-450) th/mm3 Neut # (Auto) 3.6 (1.8-7.7) th/mm3 Lymph # (Auto) 1.8 (1.0-4.8) th/mm3 [place] # (Auto) 0.4 (0.0-0.9) th/mm3 Eos # (Auto) 0.4 (0.0-0.4) th/mm3 Baso # (Auto) 0.1 (0.0-0.2) th/mm3 Comprehensive Metabolic Panel 05/30/18 Range/Units 16:25 Sodium 136 (136-145) meq/L Potassium 4.9 (3.5-5.1) meq/L Chloride 101 (98-107) meq/L Carbon Dioxide 26.3 (21.0-32.0) meq/L BUN 7 (7-18) mg/dL Creatinine 0.79 (0.50-1.00) mg/dL Calcium 8.8 (8.5-10.1) mg/dL AST 81 H (15-37) U/L ALT 43 (10-53) U/L Alkaline Phosphatase 167 H (45-117) U/L Total Protein 7.3 (6.4-8.2) g/dL Albumin 2.7 L (3.4-5.0) g/dL Intake and Output 05/30/18 05/31/18 05/31/18 22:59 06:59 14:59 Intake Total 500 / 500 Balance 500 / 500 Intake: IV 500 / 500 NS Inj 500 ML @ Wide Open IV. 500 / 500 SIG BOLUS ONE Rx#:[id number] Other: Date of Last Bowel Movement 05/30/18 Weight 92.533 kg Weight On Admission 92.53 kg - Imaging and Cardiology Imaging: Impressions Chest X-Ray 05/30/18 16:14 CONCLUSION: No acute cardiopulmonary disease. Abdomen/Pelvis CT 05/30/18 17:43 CONCLUSION: 1. No acute CT abnormality in the abdomen or pelvis. 2. Mild colonic diverticulosis without evidence for diverticulitis. 3. No definitive evidence for CT evidence for colitis. 4. Hepatomegaly with decreased hepatic attenuation consistent with medical liver disease versus hepatic steatosis. 5. Minimal groundglass opacities at the right lung base, likely atelectasis. 6. Nonspecific mar mesentery and subcentimeter mesenteric nodes in the left upper quadrant. Differential considerations include mesenteric panniculitis amongst other etiologies. Chest CTA 05/30/18 17:43 CONCLUSION: 1. Motion limited examination with poor visualization of the subsegmental branches of the lower lobes. 2. Otherwise, no CT evidence for pulmonary artery embolism. 3. No significant pleural or parenchymal abnormalities. EKG interpretations - EKG EKG shows: sinus rhythm (EKGs are sinus rhythm without significant ST segment depressions or elevations.) Caprini VTE Risk Assessment Caprini VTE Risk Assessment: No/Low Risk (score <= 1) Caprini Risk Assessment Model: Point Value = 1 Point Value = 2 Point Value = 3 Point Value = 5 Age 41-60 Minor surgery BMI > 25 kg/m2 Swollen legs Varicose veins or History of unexplained or recurrent spontaneous Oral contraceptives or hormone replacement Sepsis (< 1 month) Serious lung disease, including pneumonia (< 1 month) Abnormal pulmonary function Acute myocardial infarction Congestive heart failure (< 1 month) History of inflammatory bowel disease Medical patient at bed rest Age 61-74 Arthroscopic surgery Major open surgery (> 45 min) Laparoscopic surgery (> 45 min) Malignancy Confined to bed (> 72 hours) Immobilizing plaster cast Central venous access Age >= 75 History of VTE Family history of VTE Factor V Leiden Prothrombin [id number] Lupus anticoagulant Anticardiolipin antibodies Elevated serum homocysteine Heparin-induced thrombocytopenia Other congenital or acquired thrombophilia Stroke (< 1 month) Elective arthroplasty Hip, pelvis, or leg fracture Acute spinal cord injury (< 1 month) Prophylaxis Regimen: Total Risk Factor Score Risk Level Prophylaxis Regimen 0-1 Low Early ambulation 2 Moderate Order ONE of the following: *Sequential Compression Device (SCD) *Heparin 5000 units SQ BID 3-4 Higher Order ONE of the following medications: *Heparin 5000 units SQ TID *Enoxaparin/Lovenox 40 mg SQ daily (WT < 150 kg, CrCl > 30 mL/min) *Enoxaparin/Lovenox 30 mg SQ daily (WT < 150 kg, CrCl > 10-29 mL/min) *Enoxaparin/Lovenox 30 mg SQ BID (WT < 150 kg, CrCl > 30 mL/min) AND/OR *Sequential Compression Device (SCD) 5 or more Highest Order ONE of the following medications: *Heparin 5000 units SQ TID (Preferred with Epidurals) *Enoxaparin/Lovenox 40 mg SQ daily (WT < 150 kg, CrCl > 30 mL/min) *Enoxaparin/Lovenox 30 mg SQ daily (WT < 150 kg, CrCl > 10-29 mL/min) *Enoxaparin/Lovenox 30 mg SQ BID (WT < 150 kg, CrCl > 30 mL/min) AND *Sequential Compression Device (SCD) Assessment and Plan - Assessment (1) Chest pain Code(s): R07.9 - Chest pain, unspecified Status: Acute (2) Diabetes Code(s): E11.9 - Type 2 diabetes mellitus without complications Status: Acute (3) Anxiety Code(s): F41.9 - Anxiety disorder, unspecified Status: Acute (4) Colitis Code(s): K52.9 - Noninfective gastroenteritis and colitis, unspecified Status : Acute (5) Asthma Code(s): J45.909 - Unspecified asthma, uncomplicated Status: Acute - Plan Patient was given reassurance that her chest CT scan and abdominal CT scan showed no acute emergent process. The possible panniculitis in her abdomen is of some concern but needs outpatient follow-up with a pharmaceutical representative. Her shortness of breath is almost certainly related to her underlying pulmonary disease. Her chest pain is musculoskeletal in origin and consistent with costochondritis. However in view of her history and the fact that she has not been followed for some time a nuclear stress test will be obtained prior to discharge. Patient also needs to discuss with her primary care physician at [facility] the importance of being on statin therapy and ALINE inhibitor medication with her history of diabetes. Patient also needs to hold her metformin for 2 days as she had a CT with contrast in the ED. Patient is stable at this time. She is agreeable to this plan. She should return to ED for interval issues. H&P: Quality - VTE Deep Vein Thrombosis/Pulmonary Embolism Present on Admission: No (1) Chest pain Qualifiers: Chest pain type: unspecified Qualified Code(s): R07.9 - Chest pain, unspecified
[2018-05-31] MEDS ORDERED: Regadenoson Inj 0.4 MG/5 ML Syringe IV.PUSH ONE (12:33)
--- NOTE | 2018-05-31 13:45 | NM ---
EXAM DATE: 05/31/2018 1:37 PM EST AGE/SEX: 58 years / Female INDICATIONS:Angina. Myocardial infarction Substernal chest pain. CLINICAL DATA: This is the patient's initial encounter. Patient reports that signs and symptoms have been present for 1 day and indicates a pain score of 6/10. MEDICAL/SURGICAL HISTORY: Chronic obstructive pulmonary disease. Diabetes mellitus type I. Cho lecystectomy. Tonsillectomy. COMPARISON: . DOSE: 8.5 mCi Tc 99m Myoview at rest 25.4 mCi [id number] at stress 0.4 mg Lexiscan STRESS SYMPTOMS: Asymptomatic. EJECTION FRACTION: >70% % TECHNIQUE: The patient underwent pharmacologic stress with infusion of prescribed dose. Continuous ECG tracing was monitored during stress. Gated SPECT imaging was performed after stress and conventi onal SPECT imaging was performed at rest. The examination was performed on a SPECT/CT scanner, both attenuation and non-corrected datasets were reviewed. FINDINGS: Distribution: The maximum perfused segment at stress is in the anterior wall. Perfusion Study: The pattern of perfusion at stress is within normal limits. Gated Study: There are intact wall motion and wall thickening without hypokinetic or dyskinetic segm ents. The ejection fraction is calculated at >70%%. RISK CATEGORY: Low (<1% Annual Motality Rate) CONCLUSION: 1. Negative examination. 2. Intact wall motion with normal EF of greater than 70%. Electronically signed by: Maco Kelley MD 05/31/2018 1:44 PM EST
[2018-05-31] MEDS ORDERED: Metoprolol Tartrate 100 MG Tablet PO SCH (21:00)
--- NOTE | 2018-06-01 08:59 | TR ---
Date Performed: 05/31/2018 Time Performed: 13:00:10 DOCTOR: Aubrey Remy DRUG LIST: CLINICAL HISTORY: CHEST PAIN REASON FOR TEST: CHEST PAIN REASON FOR ENDING: OBSERVATION: CONCLUSION: Lexiscan stress test was performed under standard four minute protocol. Radionuclide was injected one minute prior to ending the test. No electrocardiographic abormalities were present to suggest ischemia. Nuclear imaging and interpretation are pending. COMMENTS:
== END 2018-05-31 16:36 | disposition home or self-care (01) ==
LOC: NEDA 15:44 → NEPC 15:44 → NEPFCDU 21:14
PROVIDERS: ADMIT Internal Medicine Interventional Cardiology; ATTEND Internal Medicine Interventional Cardiology
DX: F17.210 Nicotine dependence, cigarettes, uncomplicated; R07.9 Chest pain, unspecified; K57.30 Diverticulosis of large intestine without perforation or abscess without bleeding; I10 Essential (primary) hypertension; E11.9 Type 2 diabetes mellitus without complications; Z88.1 Allergy status to other antibiotic agents; F31.9 Bipolar disorder, unspecified; I25.2 Old myocardial infarction; Z79.4 Long term (current) use of insulin; R94.31 Abnormal electrocardiogram [ECG] [EKG]; J44.9 Chronic obstructive pulmonary disease, unspecified; Z90.49 Acquired absence of other specified parts of digestive tract; F41.9 Anxiety disorder, unspecified; K52.9 Noninfective gastroenteritis and colitis, unspecified